=== PATIENT | female | born 1980 | race Two or more races ===

== ENCOUNTER 2018-08-24 11:44 | Emergency (ER) | payer SELFPAY ==
[~2018-08-24] VITALS: Ht 154.9 cm; Wt 56.7 kg
[2018-08-24] MEDS ORDERED: PANTOPRAZOLE 40 MG/10 ML VIAL IV STA (12:19)
[2018-08-24] MEDS ORDERED: SODIUM CHLORIDE 0.9% 500 ML IVB ONE (12:19)
[2018-08-24 12:21] LABS: Basophils # (auto) 0 uL; Basophils % (auto) 0.6 % (0.0-2.0); Eosinophils # (auto) 0.1 uL; Eosinophils % (auto) 1.9 % (0.0-7.0); Hematocrit 41.1 % (36.0-46.0); Hemoglobin 13.9 g/dL (12.2-16.2); Lymphocytes # (auto) 1.7 uL; Lymphocytes % (auto) 32.5 % (10.0-50.0); Mean Corpuscular Hgb Conc. 33.9 g/dL (32.0-36.0); Mean Corpuscular Volume 88.5 fL (80.0-100.0); Monocytes # (auto) 0.5 uL; Monocytes % (auto) 8.7 % (0.0-12.0); Neutrophils # (auto) 2.9 uL; Neutrophils % (auto) 56.3 % (37.0-80.0); Nucleated Red Blood Cells % 0.2 %; Platelet Count (auto) 158 10^3/uL (140-450); Red Blood Cells 4.65 10^6/uL (4.0-5.20); Red Cell Distribution Width 12.9 % (11.8-14.3); White Blood Cell 5.2 10^3/uL (4.4-10.8)
[2018-08-24] MEDS ORDERED: ONDANSETRON HCL 4 MG/2 ML VIAL IV ONE (12:30)
[2018-08-24 12:35] LABS: Urine Bacteria NONE SEEN /hpf (None Seen); Urine WBC 3 /hpf (0 - 5)
[2018-08-24 12:38] LABS: Urine Blood Normal /uL (Negative); Urine Specific Gravity 1.004 (1.001-1.035)
[2018-08-24] MEDS: MORPHINE SULFATE 4 MG/ML SYR/VIAL IV ONE ×2 (12:52→14:02)
[2018-08-24 13:00] LABS: Albumin 3.3 g/dL (3.4-5.0); BUN/Creatinine Ratio 18.1; Calcium 8.3 mg/dL (8.5-10.1); Potassium 3.5 mmol/L (3.5-5.1)
[2018-08-24 13:03] LABS: Bilirubin, Total 0.2 mg/dL (0.2-1.0); Total Protein 7.6 g/dL (6.4-8.2)
[2018-08-24 14:10] VITALS: BP 120/66
== END 2018-08-24 14:11 | disposition home or self-care (01) ==
LOC: ER 11:44
DX: K29.00 Acute gastritis without bleeding (principal)
CPT/HCPCS: 36415; 76705; 80053; 81001; 81025; 82150; 83690; 85025; 94761; 96361; 96374; 96375; 99285; C9113; J2270; J2405